=== PATIENT | female | born 1940 | race African-American/Black ===

== ENCOUNTER 2020-03-24 08:49 | Outpatient (CLI) | payer MEDICARE, OTHER ==
[2020-03-24] MEDS ORDERED: Iopamidol 370 76% 100 ML VIAL ONE (09:00)
--- NOTE | 2020-03-25 07:00 | CT ---
CT Abdomen Pelvis W WO con History: Microscopic hematuria Comparison: None. Findings: On the noncontrast portion of the exam the lung bases are clear. Heart size mildly enlarged without pericardial effusion. Nonobstructing 2 mm calculus interpolar left kidney. Small 3 mm calculus inferior pole right kidney. Aortic contour is nonaneurysmal but has extensive atherosclerotic plaque. The celiac trunk and superi or mesenteric arteries are patent. Numerous cysts of both kidneys. No solid renal enhancing mass. No hydroureteronephrosis. 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 Extensive calcifications of the pelvis and adnexa. Possible bilateral Bartholin's gland cysts. No acute osseous abnormality. Multilevel degenerative listhesis number spine. The liver and spleen are unremarkable along with the pancreas. Adrenal glands are unremarkable. No filling defect within the urinary bladder. Impression: 1. Bilateral renal cysts without abnormal renal enhancing nor urothelial enhancing mass. 2. Punctate nonobstructive 3 mm right inferior renal collecting system and 2 mm left interpolar renal calculi. 3. Possible bilateral Bartholin gland cyst. 4. 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
== END 2020-03-24 08:50 | disposition home or self-care (01) ==
LOC: NAV CT 08:49
PROVIDERS: ATTEND Internal Medicine
DX: R31.21 Asymptomatic microscopic hematuria (principal); N28.1 Cyst of kidney, acquired; N20.0 Calculus of kidney; N28.89 Other specified disorders of kidney and ureter; Z01.812 Encounter for preprocedural laboratory examination
CPT/HCPCS: 36415; 74178; 82565; Q9967